=== PATIENT | female | born 1995 | race Caucasian/White ===

== ENCOUNTER 2016-08-13 09:42 | Inpatient (IN) | payer MEDICAID ==
[~2016-08-13] VITALS: Ht 160 cm; Wt 80.0 kg
[2016-08-13 10:09] VITALS: Ht 160 cm; Wt 80.0 kg
[2016-08-13] MEDS ORDERED: PRENAT PO (10:11)
[2016-08-13] MEDS ORDERED: CARBOPROST 250 MCG INJ IM PRN ×2 (10:30→23:30)
[2016-08-13] MEDS ORDERED: OXYTOCIN 30 UNITS/LR 500 ML IV PRN ×2 (10:30→23:30)
[2016-08-13] MEDS ORDERED: BUTORPHANOL 2 MG INJ IV PRN (10:30)
[2016-08-13] MEDS ORDERED: METHYLERGONOVINE 0.2 MG INJ IM PRN ×2 (10:30→23:30)
[2016-08-13] MEDS ORDERED: LACTATED RINGER'S 1,000 ML IV PRN (10:30)
[2016-08-13] MEDS ORDERED: LIDOCAINE 1% (MPF) 30 ML INJ INJ PRN (10:30)
[2016-08-13] MEDS ORDERED: OXYTOCIN 30 UNITS/LR 500 ML IV SCH ×2 (10:30)
[2016-08-13] MEDS ORDERED: MISOPROSTOL 200 MCG TAB PR PRN ×2 (10:30→23:30)
[2016-08-13 11:40] LABS: BASOPHILS % 0.4 % (0.0-2.0); CONDITION 1; EOSINOPHILS % 0.4 % (0.0-7.0); HEMATOCRIT 34.1 % (37.0-47.0); HEMOGLOBIN 11.5 g/dl (12.0-16.0); LH ANALYZER COMMENTS 1; LYMPHOCYTES # 2.5 10^3/ul (0.8-2.9); LYMPHOCYTES % 24.9 % (15.0-51.0); MEAN CORPUSCULAR HEMOGLOBIN 27.3 pg (29.0-33.0); MEAN CORPUSCULAR HGB CONC 33.7 g/dl (32.0-37.0); MEAN CORPUSCULAR VOLUME 81.1 fl (82.0-101.0); MEAN PLATELET VOLUME 9.2 fl (7.4-10.4); MONOCYTE # 0.5 10^3/ul (0.3-0.9); MONOCYTES % 4.5 % (0.0-11.0); NEUTROPHILS % 69.8 % (39.0-77.0); PLATELET COUNT 245 10^3/UL (140-440); RED BLOOD COUNT 4.21 10^6/ul (4.20-5.40); RED CELL DISTRIBUTION WIDTH 14.2 % (11.5-14.5)
[2016-08-13 11:43] LABS: INR 0.96; PROTIME 12.8 Sec (12.2-14.2)
[2016-08-13 11:44] LABS: PARTIAL THROMBOPLASTIN TIME 27.2 Sec (25.0-35.0)
[2016-08-13] MEDS: LACTATED RINGER'S 1,000 ML IV SCH ×3 (17:04→20:20)
[2016-08-13] MEDS: BUTORPHANOL 2 MG INJ IV PRN ×2 (17:29→19:29)
[2016-08-13] MEDS ORDERED: AMPICILLIN 2 GM/NS (PMX) 100 ML ONE (20:16)
[2016-08-13] MEDS ORDERED: AMPICILLIN 2 GM/NS (PMX) 100 ML IV ONE (20:30)
[2016-08-13] MEDS: OXYTOCIN 30 UNITS/LR 500 ML IV SCH (22:14)
[2016-08-13] MEDS ORDERED: LACTATED RINGER'S 1,000 ML IV* SCH (23:09)
[2016-08-13] MEDS ORDERED: DEXTROSE 5%-LR 1,000 ML IV SCH (23:09)
--- NOTE | 2016-08-13 23:28 | HP ---
Date/Time of Note Date/Time of Note DATE: 08/13/16 TIME: 23:11 OB - History Hx of Present Chief Complaint: 21 y/o G1with SIUP at 38 wks with SROM at 08:30 this morning with UCS Last Menstrual Period: Nov 21, 2015 Estimated Due Date: Aug 27, 2016 : 1 Para: 0 Care: Good Care Obstetrical Complications: None Medical Complications: None Past Family/Social History * Past Medical, Surgical, Family and Obstetric Histories reviewed from chart. Blood Type: O+ Rubella: immune RPR/VDRL: Negative GBS Status: Negative HBsAG: Negative OB Admission Exam Physical Exam HEENT: WNL Heart: Rhythm Normal Abdomen: WNL Extremities: Normal Reflexes: Normal Cervical Dilatation: 1cm Effacement: 50% Station: -3 Membranes: Ruptured (clear at 08:30 on 08/13/16) Amniotic Fluid: Clear Heart Rate: 140's Accelerations: Accelerations Present Decelerations: No Decelerations Varibility: Moderate Contractions on Admission: 6-10 Minutes Apart Intensity: Moderate Last 72 hours Lab Results CBC & BMP 08/13/16 11:00 OB Assessment/Plan Other plan: IMPRESSION & PLAN: 21 Year-old G1 with SIUP at 38 with SROM admitted in early onset of labor - FHR: No sign of metabolic acidosis- Category I - Continuous EFM, toco - CBC, blood type and screen - Analgesia options with R/B/A discussed in detail with patient - Epidural per patient request - Please see the orders 2) O+/Rubella: Immune/GBS: negative NVD consent Admission, procedures, expectations, risks and possible complications have been discussed in detail with the patient. Risk of vaginal delivery including but not limited to bleeding, infection, cervical laceration, placental retention, injury to fetus, blood transfusion, blood transfusion related infection, risk of anesthesia, adhesion, cervical laceration, episiotomy/laceration, possible delivery with risk of bleeding, infection, injury to other organs ( bowel, bladder, ureter, vessels, nerves), injury to fetus, blood transfusion, blood transfusion related infection, risk of anesthesia, scar and hernia formation, needs for future , removal of uterus or any other indicated surgery discussed with the patient. She expressed understanding and repeats the risks. All of her questions were answered; all appropriate consents will be signed. PHYSICIAN'S VERIFICATION OF INFORMED CONSENT-NVD The patient was counseled regarding the procedure, its indications, risks, potential complications and alternatives and any questions were answered. Consent was obtained. PLANNED PROCEDURE/TREATMENT: Vaginal delivery with possible vacuum/forceps delivery episiotomy, repair of laceration possible delivery PHYSICIAN'S VERIFICATION OF INFORMED CONSENT FOR BLOOD TRANSFUSION. There is a reasonable possibility that blood transfusion will be necessary as a result of the patient's procedure. I have discussed the following with the patient/patient's legal outside sales representative insurance: An explanation of the benefits and risks of the transfusion of blood or blood products and the possible alternatives. Al questions have been answered to the patient's/patients legal representatives satisfaction. INFORMED CONSENT: The patient has been informed of: - The nature of the proposed care, treatment, services, medications, interventions or procedures. - Potential benefits, risks or side effects, including potential problems related to recuperation. - The likelihood of achieving care treatment and service goals. - Reasonable alternatives to the proposed care, treatment and service. - The relevant risks, benefits and side effects related to alternatives, including the possible results of not receiving care, treatment and services. - When indicated, any limitations on the confidentiality of information learned from or about the patient. - If appropriate, the risks, benefits and alternatives of the drugs to be used for sedation/analgesia including moderate sedation. - If appropriate, patient has been provided information on the risks, benefits and alternatives to the transfusion of blood and/or blood products. Antoine Villela MD Copies To: CC: RADAMES HUANG MD, SEDI Aug 13, 2016 23:21
[2016-08-13 23:30] VITALS: BP 95/65; PULSE 86; RESP 18
[2016-08-13] MEDS ORDERED: DIBUCAINE 1% 30 GM OINT PR PRN (23:30)
[2016-08-13] MEDS ORDERED: DIPHENHYDRAMINE 50 MG INJ IV PRN (23:30)
[2016-08-13] MEDS ORDERED: BENZOCAINE 20% 56 ML SPRAY TOP PRN (23:30)
[2016-08-13] MEDS ORDERED: ACETAMINOPHEN 325 MG TAB PO PRN (23:30)
[2016-08-13] MEDS ORDERED: ZOLPIDEM 5 MG TAB PO PRN (23:30)
[2016-08-13] MEDS ORDERED: WITCH HAZEL/GLYCERIN PAD PR PRN (23:30)
[2016-08-13] MEDS ORDERED: SENNA/DOCUSATE NA (8.6MG/50MG) TAB PO PRN (23:30)
[2016-08-13] MEDS ORDERED: ONDANSETRON 4 MG INJ IV PRN (23:30)
[2016-08-13] MEDS ORDERED: LANOLIN 7 GM TUBE TOP PRN (23:30)
[2016-08-13] MEDS ORDERED: OXYCODONE/ASPIRIN (4.88/325) TAB PO PRN (23:30)
--- NOTE | 2016-08-13 23:34 | LDN ---
Date/Time of Note Date/Time of Note DATE: 08/13/16 TIME: 23:28 Delivery Summary 21 y/o G1 with SIUP at 38 wks with SROM at 08:30/08/13/16 Placenta Delivered: Spontaneously Meconium: none Perineum intact?: No (first degree vaginal laceration) Perineal laceration repair: 3/0 vicryl Anesthesia type: Local Estimated blood loss: 150 Sponge & Needle done & correct: Yes All needle counts correct: Yes Any foreign bodies felt in the: No Problems: Delivery Information Sex Sex: female Apgars 1 Minute: 8 5 Minute: 9 Suctioning Nose & mouth suctioned at abigail: Yes Umbilical Cord Umbilical cord with: 3 Vessels Cord presentations: no nuchal cord Cord Blood was obtained: Yes Mother & Baby Disposition Disposition Weight: 2185-6 lbs 2 oz. Time of delivery: 21:23 Mom & Baby to Maternity; Good: Yes Mom transferred to: Med/Surg Baby to NICU: No Copies To: CC: RADAMES HUANG MD, SEDI Aug 13, 2016 23:34
[2016-08-14] VITALS: BP 100/80; PULSE 82; RESP 18
[2016-08-14] MEDS ORDERED: AMPICILLIN 1 GM/NS (PMX) 50 ML IV SCH (00:30)
[2016-08-14] MEDS: OXYTOCIN 30 UNITS/LR 500 ML IV SCH (02:15)
[2016-08-14 04:20] VITALS: BP 104/64; PULSE 72; RESP 18
[2016-08-14] MEDS: IBUPROFEN 600 MG TAB PO SCH ×4 (06:00→17:12)
[2016-08-14 08:00] VITALS: BP 103/65; PULSE 86; RESP 18
[2016-08-14 08:17] LABS: BASOPHILS % 0.3 % (0.0-2.0); HEMATOCRIT 29.8 % (37.0-47.0); HEMOGLOBIN 10.2 g/dl (12.0-16.0); LYMPHOCYTES # 2.2 10^3/ul (0.8-2.9); LYMPHOCYTES % 13.8 % (15.0-51.0); MEAN CORPUSCULAR HEMOGLOBIN 27.4 pg (29.0-33.0); MEAN CORPUSCULAR HGB CONC 34.2 g/dl (32.0-37.0); MEAN CORPUSCULAR VOLUME 80.3 fl (82.0-101.0); MEAN PLATELET VOLUME 9.2 fl (7.4-10.4); MONOCYTE # 1.1 10^3/ul (0.3-0.9); MONOCYTES % 6.5 % (0.0-11.0); NEUTROPHIL # 12.8 10^3/ul (1.6-7.5); NEUTROPHILS % 79.4 % (39.0-77.0); PLATELET COUNT 225 10^3/UL (140-440); RED BLOOD COUNT 3.72 10^6/ul (4.20-5.40); RED CELL DISTRIBUTION WIDTH 13.6 % (11.5-14.5); UNCORRECTED WBC 16.2 10^3/ul (4.8-10.8); WHITE BLOOD COUNT 16.2 10^3/ul (4.8-10.8)
[2016-08-14 08:21] LABS: CONDITION 1; LH ANALYZER COMMENTS 1
--- NOTE | 2016-08-14 10:02 | PN ---
Date/Time of Note Date/Time of Note DATE: 08/14/16 TIME: 10:01 OB Subjective Subjective Subjective Post normal vaginal delivery day 1 Vital sign a stable afebrile abdomen soft uterus firm lochia normal extremity normal RADAMES HUANG MD Aug 14, 2016 10:02
[2016-08-14 17:04] VITALS: BP 94/67; PULSE 74; RESP 18
[2016-08-14 19:30] VITALS: BP 108/63; PULSE 76; RESP 18
[2016-08-15] MEDS: IBUPROFEN 600 MG TAB PO SCH ×3 (00:19→12:03)
[2016-08-15 04:00] VITALS: BP 105/59; PULSE 61; RESP 18
[2016-08-15 08:00] VITALS: BP 98/55; PULSE 74; RESP 18
[2016-08-15] MEDS ORDERED: MEASLES,MUMPS,RUBELLA VACCINE INJ SC* ONE (09:00)
[2016-08-15] MEDS ORDERED: DIPHTH/TET/ACEL PERTUSS (ADULT) 0.5 ML VIAL IM* ONE (09:00)
[2016-08-15] MEDS ORDERED: INFLUENZA VIRUS VACCINE 0.5 ML (DISPENSING) IM* ONE (09:00)
--- NOTE | 2016-08-15 10:01 | DS ---
Date/Time of Note Date/Time of Note DATE: 08/15/16 TIME: 10:00 Obstetrical Discharge Record Final Diagnosis Final Diagnosis: Term delivered Vaginal Delivery Obstetrical Delivery: Spontaneous Condition on Discharge Physical Assessment Last Vitals: Afebrile vital sign a stable abdomen soft uterus firm lochia normal stringently normal Current Medications Medications (Trade) Dose Ordered Sig/Jeanine Route PRN Reason Start Time Stop Time Status Last Admin Dose Admin Lactated Ringer's 1,000 ml @ 125 mls/hr Q8H IV 08/13/16 10:22 08/13/16 23:22 DC 08/13/16 20:20 Oxytocin/Lactated Ringer's 500 ml @ 0 mls/hr TITRATE IV 08/13/16 10:30 08/14/16 03:13 DC 08/13/16 11:26 Butorphanol Tartrate (Stadol) 1 mg Q2H PRN IV PAIN 08/13/16 10:30 08/14/16 03:14 DC Butorphanol Tartrate (Stadol) 2 mg Q2H PRN IV PAIN 08/13/16 10:30 08/14/16 03:14 DC 08/13/16 19:29 Lidocaine 30 ml 30 ml ONCE PRN INJ EPISIOTOMY/TEARING 08/13/16 10:30 08/14/16 03:14 DC Oxytocin/Lactated Ringer's 500 ml @ 125 mls/hr ONCE -MAY REPEAT X1 IV 08/13/16 10:30 08/14/16 03:14 DC 08/14/16 02:15 Oxytocin/Lactated Ringer's 500 ml @ 125 mls/hr ONCE IV 08/13/16 10:30 08/14/16 03:14 DC 08/13/16 22:15 Lactated Ringer's 1,000 ml @ 2,000 mls/hr Q30M PRN IV PRE-EPIDURAL BOLUS 08/13/16 10:30 08/14/16 03:14 DC Oxytocin/Lactated Ringer's 500 ml @ 0 mls/hr ONCE PRN IV For Hemorrhage Management 08/13/16 10:30 08/13/16 23:22 DC Methylergonovine Maleate (Methergine) 0.2 mg ONCE PRN IM VAGINAL BLEEDING 08/13/16 10:30 08/13/16 23:22 DC Carboprost Tromethamine (Hemabate) 250 mcg ONCE PRN IM VAGINAL BLEEDING 08/13/16 10:30 08/13/16 23:22 DC Misoprostol 1000 mcg 1,000 mcg ONCE PRN DE VAGINAL BLEEDING 08/13/16 10:30 08/13/16 23:22 DC Ampicillin 100 ml @ 100 mls/hr ONCE ONCE IV 08/13/16 20:30 08/14/16 02:39 DC 08/13/16 20:19 Ampicillin 50 ml @ 100 mls/hr Q4H IV 08/14/16 00:30 08/14/16 02:39 DC Ampicillin 100 ml @ ud STK-MED ONCE .ROUTE 08/13/16 20:16 08/13/16 20:17 DC Lactated Ringer's (Lr) 1,000 ml @ 125 mls/hr Q8H IV* 08/13/16 23:09 08/14/16 03:13 DC Ibuprofen (Motrin) 600 mg Q6 PO 08/14/16 00:00 08/15/16 05:18 Acetaminophen (Tylenol Tab) 650 mg Q4H PRN PO PAIN LEVEL 1-5 08/13/16 23:30 Oxycodone/Aspirin (Percodan) 1 tab Q3H PRN PO PAIN LEVEL 1-5 08/13/16 23:30 Ondansetron HCl (Zofran Inj) 4 mg Q6H PRN IV NAUSEA AND/OR VOMITING 08/13/16 23:30 Diphenhydramine HCl (Benadryl) 25 mg Q6H PRN IV PRURITUS 08/13/16 23:30 08/14/16 03:14 DC Zolpidem Tartrate (Ambien) 5 mg QHS PRN PO INSOMNIA 08/13/16 23:30 Senna/Docusate Sodium (Senokot-S) 1 tab BID PRN PO CONSTIPATION 08/13/16 23:30 08/14/16 21:32 Witch Jennifer/ Glycerin (Tucks Pads) 1 pad BEDSIDE MEDICATION PRN DE HEMORRHOID/EPISIOTMY PAIN 08/13/16 23:30 08/14/16 02:15 Benzocaine (Dermoplast [place]) 1 spray BEDSIDE MEDICATION PRN TOP HEMORRHOID/EPISIOTMY PAIN 08/13/16 23:30 08/14/16 02:14 Dibucaine (Nupercainal) 1 applic BEDSIDE MEDICATION PRN DE HEMORRHOID/EPISIOTMY PAIN 08/13/16 23:30 Lanolin (Meh-E-Neyzbd) 1 applic BEDSIDE MEDICATION PRN TOP BEDSIDE FOR REJI TO NIPPLES 08/13/16 23:30 08/14/16 02:14 Measles/Mumps/ Rubella Vaccine Live (Mmr Ii Vaccine) 0.5 ml ONCE ONCE SC* 08/15/16 09:00 08/15/16 09:00 DC Diphtheria/ Tetanus/Acell Pertussis 0.5 ml 0.5 ml ONCE ONCE IM* 08/15/16 09:00 08/15/16 09:01 DC Oxytocin/Lactated Ringer's 500 ml @ 0 mls/hr ONCE PRN IV For Hemorrhage Management 08/13/16 23:30 Methylergonovine Maleate (Methergine) 0.2 mg ONCE PRN IM VAGINAL BLEEDING 08/13/16 23:30 Carboprost Tromethamine (Hemabate) 250 mcg ONCE PRN IM VAGINAL BLEEDING 08/13/16 23:30 Misoprostol 1000 mcg 1,000 mcg ONCE PRN DE VAGINAL BLEEDING 08/13/16 23:30 Dextrose/Lactated Ringer's (D5-Lr) 1,000 ml @ 125 mls/hr Q8H IV 08/13/16 23:09 08/14/16 02:39 DC Influenza Virus Vaccine (Fluzone) 0.5 ml ONCE ONCE IM* 08/15/16 09:00 08/15/16 09:01 DC 08/15/16 07:56 Voiding: Yes Bowel Movement: Yes Breast: Soft, non-tender, Filling Fundus: Firm Calf Tenderness: No Patient Condition: Good RADAMES HUANG MD Aug 15, 2016 10:01
== END 2016-08-15 15:50 | disposition home or self-care (01) | DRG 775 ==
LOC: OBT 09:42 → L-D 09:43 → OBT 10:19 → L-D 10:21 → PP1 23:20
PROVIDERS: ADMIT Obstetrics & Gynecology; ATTEND Obstetrics & Gynecology
PROC: 10E0XZZ Delivery of Products of Conception, External Approach (ICD-10-PCS; principal; 2016-08-13)
PROC: 0HQ9XZZ Repair Perineum Skin, External Approach (ICD-10-PCS; 2016-08-13)
DX: O70.0 First degree perineal laceration during delivery (principal); Z37.0 Single live birth
CPT/HCPCS: 85025; 85610; 85730; 86592; 86900; 86901; 90686; 90715; G0463; J0290; J2590; J7120; J7121